=== PATIENT | female | born 1945 | race Hispanic/Latino ===

== ENCOUNTER 2020-11-11 21:34 | Emergency (ER) | payer MEDICARE ==
[~2020-11-11] VITALS: Ht 162.6 cm; Wt 94.8 kg
[2020-11-11] MEDS ORDERED: HYDROCODONE/APAP 5MG-325MG TAB PO ONE (23:30)
[2020-11-12] MEDS ORDERED: SODIUM CHLORIDE 0.9% 500ML 500 ML IV ONE (02:00)
[2020-11-12] MEDS ORDERED: SODIUM CHLORIDE 0.9% 1000ML 1,000 ML ONE (02:09)
[2020-11-12] MEDS ORDERED: HYDROCODON-ACE1 EA11 PO (02:48)
== END 2020-11-12 03:22 | disposition home or self-care (01) ==
LOC: FSED 22:20
DX: M51.36 Other intervertebral disc degeneration, lumbar region (principal); M19.011 Primary osteoarthritis, right shoulder; S70.02XA Contusion of left hip, initial encounter; W05.0XXA Fall from non-moving wheelchair, initial encounter; E11.65 Type 2 diabetes mellitus with hyperglycemia; I10 Essential (primary) hypertension; E78.5 Hyperlipidemia, unspecified; Z95.5 Presence of coronary angioplasty implant and graft
CPT/HCPCS: 72192; 73030; 73552; 73590; 80053; 82553; 84484; 85025; 99284; J7030